=== PATIENT | female | born 1965 | race Caucasian/White ===

== ENCOUNTER 2025-08-14 06:28 | Emergency (ER) | payer SELFPAY ==
[2025-08-14 06:30] VITALS: BMI 36.3
[2025-08-14 06:34] VITALS: BP 150/91; PULSE 79; RESP 18; TEMP 36.8; O2SAT 95
--- NOTE | 2025-08-14 06:53 | XR_ITS ---
EXAMINATION: PA chest single view TECHNIQUE: Upright PA chest single view Date and time: August 14., 2024, 0655 hours INDICATIONS: Onset right-sided chest pain today. FINDINGS: Normal heart size. Suspicious for 15 mm pulmonary nodule left perihilar region. No pneumonia or pulmonary edema IMPRESSION: Recommend AP lordotic chest follow-up to exclude 15 mm pulmonary nodule left upper lobe.
--- NOTE | 2025-08-14 06:53 | EKG_ITS ---
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
--- NOTE | 2025-08-14 07:07 | PD.EDRME ---
Rapid Medical Screening Exam [facility] Arrival date/time: 08/14/25 06:28 This is a 60-year-old female that comes into the emergency room with complaints of right flank pain. Patient states that she was diagnosed with a UTI 3 days ago. Patient was started on Macrobid. Patient states that she is feeling sick. Patient has not checked her temperature but she said that she felt like she had a fever. Patient denies past medical history. Patient still reports urinary symptoms such as dysuria, urgency, frequency, oliguria. Patient does not know if it is related but she was also complaining of some chest pain and shortness of breath. I have greeted and performed a focused initial assessment of this patient. Initial appropriate labs ordered at this time. A comprehensive ED assessment and evaluation of the patient and analysis of all test and completion of medical decision making process will be conducted by additional ED provider. Chief Complaint: Abdominal Pain Time Seen by Provider: 08/14/25 06:36 Vital signs: Vital Signs Temperature 98.2 F 08/14/25 06:34 Pulse Rate 79 08/14/25 06:34 Respiratory Rate 18 08/14/25 06:34 Blood Pressure 150/91 H 08/14/25 06:34 Pulse Oximetry (%) 95 08/14/25 06:34 Oxygen Delivery Method Room Air 08/14/25 06:34 Exam: Alert and oriented, breathing even and unlabored, GCS 15 Clinical Impression: EKG, chest x-ray, CBC, lipase, metabolic panel, urinalysis ordered.
[2025-08-14 07:42] LABS: Collection Type, Urine Voided
[2025-08-14 07:55] LABS: Basophils # (Auto) 0.1 Thou/mm3 (0.0-0.2); Basophils % (Auto) 1 % (0-2.5); Eosinophils # (Auto) 0.0 Thou/mm3 (0.0-0.5); Eosinophils % (Auto) 0 % (0-10); Hematocrit 45.9 % (36.0-46.0); Hemoglobin 15.0 g/dL (12.0-16.0); Immature Granulocytes Auto 0.03 Thou/mm3 (0.00-0.00); Lymphocytes # (Auto) 1.8 Thou/mm3 (1.0-4.8); Lymphocytes % (Auto) 24 % (10-50); Mean Corpuscular HGB Conc 32.7 g/dl (31.0-37.0); Mean Corpuscular Hemoglobin 27.6 pg (25.0-35.0); Mean Corpuscular Volume 84 fL (80-100); Monocytes # (Auto) 0.4 Thou/mm3 (0.0-0.8); Monocytes % (Auto) 6 % (0-12); Neutrophils # (Auto) 5.1 Thou/mm3 (1.8-7.7); Neutrophils % (Auto) 69 % (37-80); Nucleated Red Blood Cell # 0.00 Thou/mm3 (0.00-0.00); Nucleated Red Blood Cell % 0 /100 WBC (0); Platelet Count 222 Thou/mm3 (140-440); RDW Standard Deviation 41.3 fL (36.4-46.3); Red Blood Count 5.44 Miln/mm3 (4.00-5.20); White Blood Count 7.4 Thou/mm3 (3.6-11.0)
[2025-08-14 08:32] LABS: Bilirubin,Urine Negative (Negative); Blood,Urine Trace (Negative); Clarity,Urine Clear (Clear/Hazy); Color,Urine Yellow (Lt Yel-Yel); Culture Indicated,Urine Not Indicated; Glucose, Urine Negative (Negative); Ketones,Urine Negative (Negative); Leukocyte Esterase,Urine Negative (Negative); Nitrite,Urine Negative (Negative); PH,Urine 6.0 (5.0-7.0); Protein,Urine 1+ (Neg - Trace); RBC,Urine 3 /hpf (0-3); Specific Gravity,Urine 1.033 (1.001-1.035); Squamous Epithelial Cell,Urine 1 /hpf (0-5); Urobilinogen,Urine Negative mg/dL (0.0-1.0); WBC,Urine 1 /hpf (0-5)
[2025-08-14 08:36] LABS: B-Type Natriuretic Peptide 47 pg/mL (0-100)
[2025-08-14 08:38] LABS: HCG Qualitative,Urine Negative
[2025-08-14 08:40] LABS: Alanine Aminotransferase 39 U/L (10-49); Albumin, Serum 4.5 gm/dL (3.5-5.0); Albumin/Globulin Ratio 1.8 (1.2-2.2); Alkaline Phosphatase 95 U/L (46-116); Anion Gap 9 (7-16); Aspartate Amino Transferase 28 U/L (0-34); BUN/Creatinine Ratio 16 Ratio (12-20); Bilirubin,Total 0.5 mg/dL (0.3-1.2); Blood Urea Nitrogen 11 mg/dL (9-23); Calcium 9.1 mg/dL (8.3-10.6); Calcium (Corrected) 9.1 mg/dL (8.5-10.1); Carbon Dioxide 26.0 mMol/L (20.0-31.0); Chloride 107 mMol/L (98-107); Creatinine (Component) 0.7 mg/dL (0.6-1.3); Estimated Creatinine Clearance 105.7 mL/min (>60); Globulin 2.5 gm/dL (2.3-3.5); Glucose 153 mg/dL (74-106); Lipase 110 U/L (12-53); Osmolality,Calculated 285 (275-295); Potassium 4.0 mMol/L (3.4-5.1); Sodium 142 mMol/L (136-145); Total Protein 7.0 gm/dL (5.7-8.2); Troponin I < 0.002 ng/mL (0.0-0.045); eGFR > 60 See Note
[2025-08-14 10:11] VITALS: BP 159/96; PULSE 68; RESP 17; TEMP 36.7; O2SAT 95
--- NOTE | 2025-08-14 10:21 | XR_ITS ---
Examination: CT abdomen with intravenous contrast CT pelvis with intravenous contrast 2-D coronal reconstructions 2-D sagittal reconstructions Date and time of exam: 1, 2, 0, 2, 5, 11 11:00 a.m. INDICATIONS: Right flank pain beginning 1 week ago. CTDI: vol (mGy) 13.6 DLP: (mGycm) 697 Technique: Multiple axial sections of the abdomen and pelvis have been obtained. 64 slice high-resolution scanner used. 3 mm axial sections have been obtained, post intravenous injection 60 cc Isovue-370 2-D sagittal, coronal reconstructions obtained. Low dose protocols were performed. One or more of the following dose reduction techniques were used; automated exposure control, adjustment of the mA and/or KV according to patient size, use of iterative reconstruction technique. Findings: Hepatomegaly 19 cm with diffuse fatty infiltration throughout the liver Absent gallbladder Spleen is not enlarged No pancreatic mass. No renal or ureteral calculi, no hydronephrosis Aorta normal size. No bowel obstruction or diverticulitis Normal appendix No pelvic mass Mild thickening of the urinary bladder wall with pericystic inflammatory change Absent uterus Advanced degenerative disc disease L5-S1 IMPRESSION: Moderate hepatomegaly. No renal or ureteral calculi, no hydronephrosis Normal appendix. No bowel obstruction or diverticulitis. Cystitis pattern
[2025-08-14 11:28] VITALS: BP 158/96; PULSE 63; RESP 18; TEMP 36.6; O2SAT 98
[2025-08-14] MEDS: ONDANSETRON INJ 2 MG/ML INJ 2 ML 4 MG IVP (12:48)
[2025-08-14] MEDS: MORPHINE SULF INJ 4 MG/ML VIAL IVP (12:48)
--- NOTE | 2025-08-14 12:51 | EDNOTE_ITS ---
ED Abdominal Pain RME/HPI General Chief Complaint: Abdominal Pain Stated complaint: RIGHT FLANK PAIN Time seen by provider: 08/14/25 06:36 Arrival date/time: 08/14/25 06:28 RME / HPI RME / HPI narrative: 08/14/25 06:28 This is a 60-year-old female that comes into the emergency room with complaints of right flank pain. Patient states that she was diagnosed with a UTI 3 days ago. Patient was started on Macrobid. Patient states that she is feeling sick. Patient has not checked her temperature but she said that she felt like she had a fever. Patient denies past medical history. Patient still reports urinary symptoms such as dysuria, urgency, frequency, oliguria. Patient does not know if it is related but she was also complaining of some chest pain and shortness of breath. I have greeted and performed a focused initial assessment of this patient. Initial appropriate labs ordered at this time. A comprehensive ED assessment and evaluation of the patient and analysis of all test and completion of medical decision making process will be conducted by additional ED provider. DR. RIGGS MAIN ED EVALUATION: 60-year-old female presents to the Emergency Department for evaluation of epigastric pain. The patient reports she was diagnosed with an UTI 3 days ago and was started on Macrobid. Since then, she has experienced persistent urinary symptoms including dysuria, urgency, and frequency, along with subjective fevers at home. She additionally notes associated intermittent chest discomfort and shortness of breath. She denies nausea, vomiting, or diarrhea. She has no known past medical history. Related Data Allergies Allergy/AdvReac Type Severity Reaction Status Date / Time No Known Allergies Allergy Verified 08/14/25 06:29 Review of Systems Review of Systems Systems Reviewed: All systems reviewed, normal except as documented Past Medical History Social History SMOKING STATUS: Never smoker SUBSTANCE USE: does not use ALCOHOL: Never ED Exam Narrative Physical exam: GENERAL APPEARANCE: alert and oriented x 4, well-developed, well-nourished, no acute distress VITALS: All vitals were reviewed and the pulse ox is 98% on room air, which is normal according to my interpretation. HEENT: Normocephalic, atraumatic; pupils equal, round, reactive to light; EOMI; mucous membranes pink, moist; oropharynx clear NECK: Supple LUNGS: CTABL; no wheezes, no rales, no rhonchi HEART: Regular rate, regular rhythm; normal S1, S2; no murmurs ABDOMEN: Epigastric tenderness to palpation; soft, non-distended; no rebound or guarding; bowel sounds present BACK: no CVA tenderness EXTREMITIES: atraumatic; no edema NEUROLOGIC: awake; alert and oriented x4; cranial nerves II-XII grossly intact; no focal sensory or motor deficits PSYCHIATRIC: appropriate mood and affect SKIN: warm, dry, normal color; no rashes Course Quality Measures none Orders Category Date Time Status CT Screening NOW Care 08/14/25 10:21 Completed EKG (ED ONLY) *Do not use* NOW Care 08/14/25 06:[address] abdomen pelvis w con Stat Exams 08/14/25 10:21 Completed EKG (ED Only) Stat Exams 08/14/25 06:53 Draft XR chest 1V Stat Exams 08/14/25 06:53 Completed BNP [B-Type Natriuretic Peptide] Stat Lab 08/14/25 07:35 Completed CBC Stat Lab 08/14/25 07:35 Completed Comprehensive Metabolic Panel Stat Lab 08/14/25 07:35 Completed HCG Qualitative,Urine Stat Lab 08/14/25 07:14 Completed Lipase Stat Lab 08/14/25 07:35 Completed Troponin I Stat Lab 08/14/25 07:35 Completed Urinalysis, C/S if Indicated Stat Lab 08/14/25 06:58 Completed HYDROcodone*/APAP 5/325 [Clark 5/325] Med 08/14/25 13:53 Discontinued 1 tab PO X1 ONE Morphine* Inj Med 08/14/25 12:40 Discontinued 4 mg IVP X1 ONE Ondansetron Inj [Zofran Inj] Med 08/14/25 12:40 Discontinued 4 mg IVP X1 ONE Vital Signs Vital signs: Vital Signs Temperature 98.2 F 08/14/25 06:34 Pulse Rate 79 08/14/25 06:34 Respiratory Rate 18 08/14/25 06:34 Blood Pressure 150/91 H 08/14/25 06:34 Pulse Oximetry (%) 95 08/14/25 06:34 Oxygen Delivery Method Room Air 08/14/25 06:34 Abdominal Pain MDM MDM Narrative MDM Narrative:: IRadha am scribing for and in the presence of Dr. Riggs. Patient data External records reviewed:: [facility] previous records Clinical information provided by:: patient Social determinants that could affect healthcare access:: none Patient has the following chronic illnesses:: Denies any PMHx, surgeries, or known allergies. Currently on Macrobid for an UTI. How is presenting disease/condition affected by chronic disease/condition?: no chronic disease Evaluation data The following diagnostics were reviewed and interpreted by me:: lab results, radiology exam(s) and EKG tracing(s) (My interpretation: EKG performed at 0710 hours, sinus rhythm, rate 65, Q wave in lead 3, V1-2, poor R wave progression, decreased low voltage ) Lab and/or radiology exams considered but not ordered:: none Interpretation Summary: Procedure(s): CT abdomen pelvis w con Accession Number(s): [id number] cc: Efra Penny MD; NO PRIMARY/FAMILY,PHYSICIAN; Lissette Riggs MD~ Examination: CT abdomen with intravenous contrast CT pelvis with intravenous contrast 2-D coronal reconstructions 2-D sagittal reconstructions Date and time of exam: 1, 2, 0, 2, 5, 11 11:00 a.m. INDICATIONS: Right flank pain beginning 1 week ago. CTDI: vol (mGy) 13.6 DLP: (mGycm) 697 Technique: Multiple axial sections of the abdomen and pelvis have been obtained. 64 slice high-resolution scanner used. 3 mm axial sections have been obtained, post intravenous injection 60 cc Isovue-370 2-D sagittal, coronal reconstructions obtained. Low dose protocols were performed. One or more of the following dose reduction techniques were used; automated exposure control, adjustment of the mA and/or KV according to patient size, use of iterative reconstruction technique. Findings: Hepatomegaly 19 cm with diffuse fatty infiltration throughout the liver Absent gallbladder Spleen is not enlarged No pancreatic mass. No renal or ureteral calculi, no hydronephrosis Aorta normal size. No bowel obstruction or diverticulitis Normal appendix No pelvic mass Mild thickening of the urinary bladder wall with pericystic inflammatory change Absent uterus Advanced degenerative disc disease L5-S1 IMPRESSION: Moderate hepatomegaly. No renal or ureteral calculi, no hydronephrosis Normal appendix. No bowel obstruction or diverticulitis. Cystitis pattern Dictated By: Efra Penny MD Procedure(s): XR chest 1V Accession Number(s): [id number] cc: Efra Penny MD; Gwendolyn Corona NP~ EXAMINATION: PA chest single view TECHNIQUE: Upright PA chest single view Date and time: August 14., 2024, 0655 hours INDICATIONS: Onset right-sided chest pain today. FINDINGS: Normal heart size. Suspicious for 15 mm pulmonary nodule left perihilar region. No pneumonia or pulmonary edema IMPRESSION: Recommend AP lordotic chest follow-up to exclude 15 mm pulmonary nodule left upper lobe. Dictated By: Efra Penny MD Medications / Prescriptions Medications or Prescriptions considered but not ordered:: none Medication administrations:: Medication Administration History Discontinued Medications Hydrocodone Bitart/Acetaminophen (Hydrocodone/Apap 5/325 Tablet) 1 tab PO X1 ONE Stop: 08/14/25 13:54 Last Admin: 08/14/25 14:04 Dose: 1 tab Documented By: GERALDO Morphine Sulfate (Morphine Sulf Inj 4 Mg/Ml Vial) 4 mg IVP X1 ONE Stop: 08/14/25 12:41 Last Admin: 08/14/25 12:48 Dose: 4 mg Documented By: GERALDO Ondansetron HCl (Ondansetron Inj 2 Mg/Ml Inj 2 Ml) 4 mg IVP X1 ONE Stop: 08/14/25 12:41 Last Admin: 08/14/25 12:48 Dose: 4 mg Documented By: GERALDO see above Consultations Consultation(s) initiated? (list below): No Diagnosis Differential diagnosis abdominal pain: other (Gastritis or medication-induced dyspepsia, UTI (persistent or complicated), and atypical chest pain.) Most likely diagnosis given after review of the tests above:: Fatty liver Elevated lipase Right flank pain Admission Indicated Admission indicated?: not indicated Admission Request Was there a request for admission?: No Disposition Plan Disposition Plan: Discharge Discharge Attestation Discharge Attestation: The patient and all family members were given an opportunity to ask questions and understood the discharge instructions. Discharge instructions specifically effects, indications for sooner follow up or return to the emergency department, and the expected course of current diagnosis. Patient condition: Stable Discharge Plan Plan Patient Disposition: HOME (Self Care) Prescriptions/Referrals Referrals: No Primary/Family,Physician [Primary Care Provider] - In 1 week Problem List Clinical Impression: Fatty liver, Elevated lipase, Right flank pain Patient/Caregiver Discharge Instructions Education Materials: Nonalcoholic Fatty Liver ..., ED Flank Pain, Uncertain Cause Print Language: Omani Stand Alone Forms: [employer] Award Info., Patient Portal Info Letter
--- NOTE | 2025-08-14 13:01 | PRELIM_ITS ---
CT scan of the abdomen and pelvis with intravenous contrast (axial sections with sagittal and coronal reformats) August 14, 2025 1111 hours Clinical History: right flank pain Comparison: No prior study is available for comparison. Findings: Bibasilar streaky atelectasis is present. The gallbladder is surgically absent. Nonspecific perinephric fat stranding is noted bilaterally. The liver, pancreas, spleen and adrenals are unremarkable. No evidence of bowel obstruction. The appendix is within normal limits (images 64/117). There is no mesenteric or retroperitoneal adenopathy. The urinary bladder is incompletely distended at the time of the examination and appears mildly thick walled. There is no free fluid or free air. Degenerative changes are identified in the spine. Impression: No evidence of renal/ureteric calculus or hydroureteronephrosis. Perinephric fat stranding bilaterally. While nonspecific, the possibility of urinary infection cannot be excluded. Recommend clinical correlation. Urinary bladder is incompletely distended at the time of the examination, limiting the evaluation for possible wall thickening. In the appropriate clinical setting, mild cystitis cannot be entirely excluded. Recommend clinical correlation. Report Electronically Signed By: Junior Thompson 08/14/2025 1:01:02 PM [EST]
[2025-08-14 13:05] VITALS: BP 154/87; PULSE 66; RESP 19; O2SAT 96
[2025-08-14] MEDS: HYDROcodone/APAP 5/325 TABLET 1 TAB PO (14:04)
[2025-08-14 14:26] VITALS: BP 142/95; PULSE 66; RESP 18; TEMP 36.6; O2SAT 96
== END 2025-08-14 14:27 | disposition home or self-care (01) ==
PROVIDERS: Nurse Practitioner Family; Emergency Provider Emergency Medicine
DX: N30.90 Cystitis, unspecified without hematuria (principal)
CPT/HCPCS: 36415; 71045; 74177; 80053; 81001; 81025; 83690; 83880; 84484; 85025; 93005; 96374; 96375; 99284; A4649; J2270; J2405; Q9967; A9270